=== PATIENT | male | born 1960 | race Caucasian/White ===

== ENCOUNTER 2017-03-15 21:13 | Emergency (ER) | payer OTHER ==
[~2017-03-15] VITALS: Ht 175.3 cm; Wt 78.5 kg
[2017-03-15 21:33] VITALS: BP_SYST 139
[2017-03-15] MEDS ORDERED: KETOROLAC TROMETHAMINE 30 MG VIAL IM ONE (23:30)
[2017-03-16 00:49] VITALS: BP_SYST 116
== END 2017-03-16 00:49 | disposition home or self-care (01) ==
LOC: SED 21:13
DX: G89.29 Other chronic pain (principal); M54.5 Low back pain
CPT/HCPCS: 96372; 99283; J1885